=== PATIENT | female | born 1945 | race Hispanic/Latino ===

== ENCOUNTER 2017-03-18 08:50 | Outpatient (CLI) | payer MEDICARE ==
--- NOTE | 2017-03-18 09:43 | Mammography Report ---
BONE DEXA:03/18/17 08:50:00 CLINICAL: Postmenopausal. COMPARISON: 03/03/15 TECHNIQUE: Two site bone DEXA performed on an Hologic scanner. FINDINGS: The average BMD of the lumbar spine L1-L4 is 0.972g/cm squared with a T-score of -0.7 and a Z-score of is 1.5. This compares to 1.086g/cm squared on the last exam and represents a -10.4% change from the previous baseline. The average BMD of the left hip is 0.942g/cm squared with a T-score of 0 and a Z-score of +1.6. This compares to 0.910g/cm squared on the last exam and represents a +3.5% change from the previous baseline. IMPRESSION: 1. WHO classification: Normal with average fracture risk based on both spine and left hip measurements. 2. A modest improvement in left hip BMD compared to the prior exam and a moderate decline in spine BMD compared to the prior exam. RECOMMENDATION: Clinical correlation and routine screening. DEFINITIONS: BMD = Bone Mineral Density T-score = BMD related to mean peak bone mass of young adult (mean expressed in Standard Deviation) Z-score = Age matched BMD expressed in SD World Health Organization (WHO) Diagnostic Criteria Normal T-score > -1 SD Osteopenia T-score between -1 and -2.4 SD Osteoporosis T-score -2.5 SD or below NOTE: BMD is not the only risk factor for fracture; also consider factors such as the patient's age, risk of falling, previous osteoporotic fracture, family history of osteoporotic fractures, current smoker, and low body weight. Z-scores are not calculated if >80 years of age.
--- NOTE | 2017-03-18 14:33 | Ultrasound Report ---
TRANSABDOMINAL AND TRANSVAGINAL PELVIC ULTRASOUND: 03/18/17 08:50:00 CLINICAL: Family history of ovarian cancer. FINDINGS: Transabdominal and transvaginal pelvic ultrasound demonstrated absence of the uterus and a normal vaginal cuff. A right ovary was not identified. A normal left ovary measures 2.1 x 1.0 x 1.5cm. No adnexal mass. No free fluid. Normal urinary bladder. IMPRESSION: Normal pelvis status post hysterectomy. Normal left ovary no right ovary identified.
== END 2017-03-18 08:51 | disposition home or self-care (01) ==
LOC: SPVWC 08:50
PROVIDERS: ATTEND Physician Assistant Medical
DX: Z13.820 Encounter for screening for osteoporosis (principal); Z80.41 Family history of malignant neoplasm of ovary; Z78.0 Asymptomatic menopausal state; Z90.710 Acquired absence of both cervix and uterus
CPT/HCPCS: 76830; 76856; 77080

== ENCOUNTER 2018-03-20 10:38 | Outpatient (CLI) | payer MEDICARE ==
--- NOTE | 2018-03-20 12:38 | Ultrasound Report ---
TRANSABDOMINAL AND TRANSVAGINAL PELVIC ULTRASOUND: 03/20/18 10:38:00 CLINICAL: Family history of ovarian cancer. FINDINGS: Transabdominal and transvaginal pelvic ultrasound demonstrated absence of the uterus and a normal vaginal cuff. No ovaries identified. No adnexal mass. No free fluid. Normal urinary bladder. IMPRESSION: Normal pelvis status post hysterectomy. No ovaries identified. No mass.
== END 2018-03-20 10:39 | disposition home or self-care (01) ==
LOC: SPVWC 10:38
PROVIDERS: ATTEND Family Medicine
DX: R10.2 Pelvic and perineal pain (principal); Z80.41 Family history of malignant neoplasm of ovary; Z90.710 Acquired absence of both cervix and uterus
CPT/HCPCS: 76830; 76856

== ENCOUNTER 2021-02-18 10:52 | Outpatient (CLI) | payer MEDICARE ==
--- NOTE | 2021-02-18 12:26 | Ultrasound Report ---
ULTRASOUND PELVIS COMPLETE ULTRASOUND TRANSVAGINAL INDICATION / CLINICAL INFORMATION: FAM HX OVARIAN CA Z80.41/ ACUTE PAIN IN FEMALE PELVIS R10.2. TECHNIQUE: Transabdominal and Transvaginal. Duplex Color Doppler used: Yes. COMPARISON: 03/29/2019 FINDINGS: UTERUS: The uterus is surgically absent consistent with history of hysterectomy in 1998. The ovaries are not visualized on transabdominal or transvaginal imaging secondary to severe bowel ga s throughout the lower abdomen and pelvis. URINARY BLADDER: No significant abnormality. FREE FLUID: None. ADDITIONAL FINDINGS: None. IMPRESSION: No abnormality is appreciated. The ovaries are not identified secondary to bowel gas. No suspicious pelvic mass or fluid collection. Signer Name: Kyle Gtz Jr, MD Signed: 02/18/2021 12:21 PM Workstation Name: [id number]
== END 2021-02-18 10:53 | disposition home or self-care (01) ==
LOC: SPVWC 10:52
PROVIDERS: ATTEND Family Medicine
DX: R10.2 Pelvic and perineal pain (principal); Z80.41 Family history of malignant neoplasm of ovary
CPT/HCPCS: 76830; 76856

== ENCOUNTER 2021-04-01 10:24 | Outpatient (CLI) | payer MEDICARE ==
--- NOTE | 2021-04-01 12:08 | Mammography Report ---
DEXA BONE DENSITY SCAN INDICATION / CLINICAL INFORMATION: OSTEOPENIA. 75 years Female COMPARISON: DEXA scan dated 03/29/2019. LUMBAR SPINE, L1-L4: - Bone mineral density (BMD) = 1.068 g/cm2. - T-score = 0.2 - Z-score = 2.6 Change (%) since most recent prior (if available): +6 LEFT HIP, NECK : - Bone mineral density (BMD) = 0.771 g/cm2. - T-score = -0.7 - Z-score = 1.4 Change (%) since most recent prior (if available): -8 The total bone density of the left hip is 0.861 g/cm2. IMPRESSION: 1. WHO Classification: Normal bone density. Fracture Risk: Not Increased. Note: 10-Year Fracture Risk (FRAX) not reported. This DEXA unit lacks FRAX functionality. BMD Reporting Guidelines (ISCD, 2015) BMD Reporting in Postmenopausal Women and in Men Age 50 and Older - T-scores are preferred. - The WHO densitometric classification is applicable. BMD Reporting in Females Prior to Menopause and in Males Younger Than Age 50 - Z-scores, not T-scores, are preferred. This is particularly important in children. - A Z-score of -2.0 or lower is defined as below the expected range for age, and a Z-score above -2.0 is within the expected range for age. - Osteoporosis cannot be diagnosed in men under age 50 on the basis of BMD alone. - The WHO diagnostic criteria may be applied to women in the menopausal transition. http://www.iscd.org/official-positions/0474-rmsx-kbqzlvxu-positions-adult/ Signer Name: Zander Obando MD Signed: 04/01/2021 12:03 PM Workstation Name: [id number]
== END 2021-04-01 10:25 | disposition home or self-care (01) ==
LOC: SPVWC 10:24
PROVIDERS: ATTEND Family Medicine
DX: M85.80 Other specified disorders of bone density and structure, unspecified site (principal); Z78.0 Asymptomatic menopausal state
CPT/HCPCS: 77080

== ENCOUNTER 2022-03-04 09:39 | Outpatient (CLI) | payer MEDICARE ==
--- NOTE | 2022-03-04 15:04 | Ultrasound Report ---
ULTRASOUND PELVIS INDICATION / CLINICAL INFORMATION: HX OVARIAN CANCER. TECHNIQUE: Transabdominal and Transvaginal. Duplex Color Doppler used: Yes. COMPARISON: Pelvic ultrasound 02/18/2021. FINDINGS: UTERUS: Surgically absent. RIGHT ADNEXA: The right ovary is not visualized. No significant adnexal abnormality. LEFT ADNEXA: The left ovary measures 1.2 x 0.9 x 0.8 cm. No significant ovarian cyst or mass. Normal color Doppler blood flow. URINARY BLADDER: No significant abnormality. FREE FLUID: None. ADDITIONAL FINDINGS: None. IMPRESSION: 1. Prior hysterectomy. Nonvisualization of the right ovary. 2. No significant sonographic abnormality. Scribed by: Maria Ines Woody RDMS, KELVIN, MAJOR Scribed: 03/04/2022 12:39 PM I have reviewed the images, agree with this report, and edited this report as needed. Signer Name: Don Valentine MD Signed: 03/04/2022 3:00 PM Workstation Name: [id number]
--- NOTE | 2022-03-04 15:04 | Ultrasound Report ---
ULTRASOUND PELVIS INDICATION / CLINICAL INFORMATION: HX OVARIAN CANCER. TECHNIQUE: Transabdominal and Transvaginal. Duplex Color Doppler used: Yes. COMPARISON: Pelvic ultrasound 02/18/2021. FINDINGS: UTERUS: Surgically absent. RIGHT ADNEXA: The right ovary is not visualized. No significant adnexal abnormality. LEFT ADNEXA: The left ovary measures 1.2 x 0.9 x 0.8 cm. No significant ovarian cyst or mass. Normal color Doppler blood flow. URINARY BLADDER: No significant abnormality. FREE FLUID: None. ADDITIONAL FINDINGS: None. IMPRESSION: 1. Prior hysterectomy. Nonvisualization of the right ovary. 2. No significant sonographic abnormality. Scribed by: MariaI nes Woody RDMS, KELVIN, MAJOR Scribed: 03/04/2022 12:39 PM I have reviewed the images, agree with this report, and edited this report as needed. Signer Name: Don Valentine MD Signed: 03/04/2022 3:00 PM Workstation Name: [id number]
== END 2022-03-04 09:40 | disposition home or self-care (01) ==
LOC: US 09:39
PROVIDERS: ATTEND Physician Assistant Medical
DX: R10.2 Pelvic and perineal pain (principal); Z90.49 Acquired absence of other specified parts of digestive tract; Z80.41 Family history of malignant neoplasm of ovary
CPT/HCPCS: 76830; 76856